=== PATIENT | female | born 2000 | race Caucasian/White ===

== ENCOUNTER → 2019-06-20 | Outpatient (CLI) | payer OTHER ==
[~2019-06-20] MED LIST: HYDR-3250 PO; HYDR25CA83 PO; PRED20TA6 PO; RANI-54 PO
--- NOTE | 2019-06-20 17:33 | EKG ---
[place] [facility] [place] ALYSIA GREEN : [id number] MR: [id number]: [id number] EXAM DATE: ORDERING PHYSICIAN: NUZHAT GARCIA TECHNOLOGIST: STANLEY Jackson Reason : DIZZY Blood Pressure : / mmHG Vent. Rate : 074 BPM Atrial Rate : 074 BPM P-R Int : 126 ms QRS Dur : 086 ms QT Int : 386 ms P-R-T Axes : 048 087 078 degrees QTc Int : 428 ms Normal sinus rhythm Normal ECG No previous ECGs available Confirmed by Rito Romo ([id number]) on 06/21/2019 12:39:03 AM Referred By: JOSE Confirmed By:Rito Jackman
== END ==
LOC: RESP 17:00
PROVIDERS: ATTEND Nurse Practitioner Family
DX: R51 Headache (principal); R42 Dizziness and giddiness
CPT/HCPCS: 93005